=== PATIENT | male | born 1955 | race Caucasian/White ===

== ENCOUNTER 2019-12-20 15:41 | IRF | payer OTHER, SELFPAY ==
--- NOTE | ~2019-12-20 | XR_ITS ---
MODIFIED ESOPHAGRAM HISTORY: Dysphagia. TECHNIQUE: Modified barium esophagram was performed on 12/22/2019. I administered fluoroscopy and perf ormed the exam with speech pathologist. Patient was seated for lateral fluoroscopic imaging for kelvin stion of thin liquids, pudding, solids and quantified amounts, followed by thin liquids an uncontroll ed amounts. This was recorded on tape. A single fluoroscopic spot image was also recorded. The DAP fo r this procedure was 0.999 Gycm2. The amount of fluoroscopy time used during this procedure was 0.9 m inutes. FINDINGS: Oral stage: Adequate function. Pharyngeal stage: Laryngeal penetration and aspiration was present when drinking clear liquids throug h a straw. Cervical/esophageal stage: Adequate function. IMPRESSION: Laryngeal penetration and aspiration. Please correlate with speech pathologist findings and specific feeding recommendations. Reviewed, dictated and finalized at location A. 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
[2019-12-20 15:00] VITALS: BP 144/67; PULSE 82; RESP 20; TEMP 35.8; O2SAT 95; BMI 31.1
--- NOTE | 2019-12-20 15:36 | ADMGEN ---
This patient, Chacorta Bello, was admitted to PSYCHIATRIC Room 219-01. Patient/family oriented to hospital policies and general routines including ID bracelet, bed and alarms, visiting hours, pain management, procedures, bathroom and other care routines, personal items, smoking policy, room service/diet, and visiting hours. Valuables list has been completed. Information on how to activate the Rapid Response Team has been discussed. Patient/Family are encouraged to report perceived risks to care and to ask questions if they do not understand what they are told or what they should do.
[2019-12-20 16:00] VITALS: BMI 32.5
[2019-12-20 20:20] VITALS: BP 128/76; PULSE 74; RESP 18; TEMP 36.1; O2SAT 98
[2019-12-20] MEDS: FAMOTIDINE 20 MG TABLET PO (20:34)
[2019-12-20] MEDS: MELATONIN 3 MG TABLET PO (20:34)
[2019-12-20] MEDS: ATORVASTATIN 20 MG TABLET PO (20:34)
[2019-12-21] MEDS: ACETAMINOPHEN 325 MG TABLET PO (02:25)
[2019-12-21] MEDS: LORAZEPAM 0.5 MG TABLET PO (03:55)
[2019-12-21 04:52] LABS: Basophils Absolute Auto 0.1 K/mm3 (0.0-0.1); Basophils Percent Auto 0.8 % (0.2-1.2); Eosinophils Absolute Auto 0.3 K/mm3 (0-0.3); Hematocrit 45.2 % (42.0-52.0); Immature Granulocyte Absolute 0.06 K/mm3 (0.00-0.031); Immature Granulocyte Percent A 0.6 % (0-0.5); Lymphocytes Absolute Auto 1.59 K/mm3 (0.9-3.2); Lymphocytes Percent Auto 15.9 % (18.3-44.2); Mean Corpuscular HGB Conc 33.2 g/dl (32-36); Mean Corpuscular Hemoglobin 30.8 pg (26-34); Mean Corpuscular Volume 92.8 fl (80-100); Mean Platelet Volume 10.8 fl (7.4-10.4); Monocytes Absolute Auto 0.9 K/mm3 (0.1-0.6); Monocytes Percent Auto 9.1 % (2.6-8.5); Neutrophils Absolute Auto 7.1 K/mm3 (1.3-6.7); Neutrophils Percent Auto 70.6 % (45.5-73.1); Platelet Count Result 289 k/mm3 (150-375); Red Blood Count 4.87 M/mm3 (4.6-6.20)
[2019-12-21 05:20] LABS: Blood Urea Nitrogen 14 mg/dL (9-20); Calcium 8.8 mg/dL (8.4-10.2); Carbon Dioxide 23 mmol/L (22-30); Chloride 105 mmol/L (98-107); Estimated CRCL calculation 71 ml/min; Estimated Glomerular Filt Rate > 60; Glucose 113 mg/dL (75-110); Potassium 3.9 mmol/L (3.4-5.0); Sodium 139 mmol/L (137-145)
[2019-12-21 06:05] VITALS: BP 134/72; PULSE 71; RESP 18; TEMP 36.3; O2SAT 97
[2019-12-21] MEDS: HEPARIN SODIUM 5,000 UNITS/ML VIAL 5000 UNITS SUB-Q ×3 (07:34→21:39)
[2019-12-21] MEDS: hydrALAZINE HCL 50 MG TABLET PO ×3 (09:45→18:03)
[2019-12-21] MEDS: FAMOTIDINE 20 MG TABLET PO ×2 (09:45→20:12)
[2019-12-21] MEDS: FLUTICASONE PROPIONATE 0.05% NA SPR 16 GM BTL (*BKC) 2 SPRAY NASAL ×2 (09:45→18:02)
[2019-12-21] MEDS: AMLODIPINE BESYLATE 5 MG TABLET 10 MG PO (09:45)
[2019-12-21] MEDS: ASPIRIN 81 MG CHEWABLE TABLET PO (09:45)
[2019-12-21] MEDS: hydrOXYzine HCL 10 MG TABLET PO ×3 (09:46→18:02)
[2019-12-21] MEDS: LIDOCAINE 5% PATCH 2 PATCH TRANSDERM (09:46)
[2019-12-21] MEDS: OMEGA 3 POLYUNSAT FATTY ACIDS 1 GM CAP PO (09:47)
[2019-12-21] MEDS: lisinopriL 20 MG TABLET 40 MG PO (09:47)
--- NOTE | 2019-12-21 12:00 | WPDREHABHP ---
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 His last known well being was 1900 on December 06, 2019. CT of the head was negative for intracranial hemorrhage or acute and Alfaro process. He did not receive tPA. He was transferred to [facility] at 9:25 a.m. on December 08, 2019. NIH SS was 4 on arrival. CTA of the head and neck demonstrated focal stenosis or occlusion of the right CODING TECH, P3, however evaluation was limited due to venous contamination. He was not a candidate for med mechanical thrombectomy. On 2019 his MRI showed an acute infarction in the right posterior circulation, CODING TECH/ SCA territories, Neurology was consulted. He was started on aspirin and Lipitor. TTE on December 10, 2019 demonstrated an ejection fraction of 67% with no significant valvular abnormalities. On December 10, 2019 the patient became agitated with altered mental status and desaturated to 88%. Head CT showed increased edema in the posterior fossa and mild hydrocephalus. He was intubated and underwent extraventricular drain placement. He was started on mannitol. He developed acute kidney injury later that day and mannitol was stopped and he was given an IV bolus and was kept sedated to control intracranial pressure. Was extubated on December 13, 2019 and was noted to have prominent dysphagia and dysphonia. Repeat head CT and Speidel April 26, 2020 demonstrated improving stable edema in the posterior fossa with no hydrocephalus. He was weaned off drips and sedation, extraocular ventricular drain was discontinue P past swallowing study and Speidel May 26, 2020 and transferred out of ICU. He is on a cardiac dysphagia 2 diet with thin liquids. . Cardiology was consulted as the stroke was thought to be embolic in origin. Workup was negative for systemic thrombus/ emboli so he received loop recorder on December 18, 2019 for diagnosis of possible occult atrial fibrillation. He is hemodynamically stable. He has resume his home hypertensive medication. He is being treated with oral Septra DS for suspected urinary tract infection. Physical examination continues to reveal left-sided weakness decreased gross motor controlled balance impairment and decreased safety awareness. He will be discharged to rehab and subcutaneous heparin for DVT prophylaxis. Therapy was initiated at the acute care facility and the patient transferred to us from [facility] on December 20, 2019 FALLS OR SURGERIES: The patient has had no major surgeries in the 100 days prior to admission. They had no falls in the past year. They had no falls with injury in the past year. PAST MEDICAL HISTORY: hypertension prostate cancer PAST SURGICAL HISTORY: none SOCIAL HISTORY: patient lives with his and 1 level home with the basement and 2 steps to enter. His office is in the basement so he would like to be able to complete a flight of stairs. His works the 3 to 11 shift. 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
--- NOTE | 2019-12-21 12:35 | PCSTNOTE ---
Please refer to the Bedside Swallow Evaluation in the EMR.
[2019-12-21 12:44] LABS: Glucose Point of Care 161 (65-105)
[2019-12-21 14:00] VITALS: BP 124/58; PULSE 79; RESP 20; TEMP 36.5; O2SAT 97
[2019-12-21 14:45] VITALS: BMI 32.5
--- NOTE | 2019-12-21 15:17 | PCNSR ---
On 12/21/19, the student, Ekta Silva, provided care and completed [facility] documentation on this patient. I have reviewed the student's documentation and agree with the findings.
--- NOTE | 2019-12-21 16:43 | RPD ---
INDIVIDUALIZED PLAN OF CARE FOR Chacorta Bello Brief Synthesis of Pre-Admission Screen, Post-Admission Evaluation and Therapy Evaluations: The patient presents to rehab with an acute infarction of the right DRY KILN BURNER/SCA territories. Comorbidities include new onset atrial fibrillation, hypertension, hyperlipidemia, loop recorder placement, posterior fossa edema and mild HCP status post extraventricular drain placement and subsequent removal, dysphagia, dysphonia, carotid artery stenosis, and atherosclerosis. Deficits include:ADLs, Balance, Cognition, Endurance, Family Training/Education, Mobility, Pain Management, ROM, Safety, Speech, Strength, Swallowing, and Transfers. Engineering Analyst/Case Management for: Discharge Planning and Patient/Family Counseling Physical Therapy: 5 days per week for 30 minutes. Treatments may include: Therapeutic Exercise, Gait Training, Neuromuscular Re-education, Transfer Training, Community Reintegration, Bed Mobility, Patient/Family Education, Wheelchair Mobility Group Therapy/Concurrent Therapy Rationales: -Improve attention span during functional activities in a distracted environment. -Enhance problem solving and/or adequate judgment skills during functional activities in a distracted environment. -Promote increased safety awareness in a distracted environment to reduce fall risk with functional tasks, transfers, and ambulation to allow a more safe, self-sufficient return to the home environment. -Improve dynamic balance skills to promote safety and independence with functional activities in a distracted environment for maximum gain. Occupational Therapy: 5 days per week for 75 minutes. Treatments may include: Therapeutic Exercise, Therapeutic Activity, Cognitive Training, Self-Care Transfer Training, Community Reintegration, Home Management, Patient/Family Education, Wheelchair Mobility Training, Energy Conservation Training Group Therapy/Concurrent Therapy Rationales: -Allow therapist to observe and teach generalization and carry-over of skills learned in individual therapy. -Enhance problem solving and sequencing skills during therapeutic activities in a distracted environment. -Promote increased safety awareness in a realistic setting to reduce fall risk with functional tasks due to visual and verbal distractions. -Increase functional level with ADLs, ADL transfers and use of adaptive equipment through therapeutic activities with others while promoting safety to allow a more safe, self-sufficient return home. Speech Therapy: 5 days per week for 75 minutes. Treatments may include: Dysphasia Therapy, Speech/Language/Communication Therapy, Cognitive Training, Patient/Family Education Group Therapy/Concurrent Therapy - Rationale: -Allow therapist to observe and teach generalization and carry-over of skills learned in individual therapy. -Improve comprehension skills with complex or abstract ideas through discussion in a realistic setting. -Enhance problem solving skills with complex issues during activities in a distracted environment. -Promote increased memory skills and concentration in a distracted environment for a safe transition home. -Improve attention and focus with language/communication skills in a realistic and supportive therapeutic setting. -Allow for practice of expression of basic needs and ideas through functional activities with others. Medical Prognosis: Good Anticipated Length of Stay: 14 days Rehab Goals: Eating Goal: 06-Independent Oral Hygiene Goal: 06-Independent Toileting Hygiene Goal: 06-Independent Shower/Bathe Self Goal: 06-Independent Upper Body Dressing Goal: 06-Independent Lower Body Dressing Goal: 06-Independent Putting On/Taking Off Footwear Goal: 06-Independent Rolling Left and Right Goal: 06-Independent Sit to Lying Goal: 06-Independent Lying to Sitting on Side of Bed Goal: 06-Independent Sit to Stand Goal: 06-Independent Chair/[id number] Transfer Goal: 06-Independent Toilet Transfe
[2019-12-21] MEDS: ATORVASTATIN 20 MG TABLET PO (20:12)
[2019-12-21] MEDS: ACETAMINOPHEN 325 MG TABLET 650 MG PO (20:13)
[2019-12-21] MEDS: MELATONIN 3 MG TABLET PO (20:13)
[2019-12-21 22:00] VITALS: BP 138/55; PULSE 86; RESP 18; TEMP 36.9; O2SAT 97
[2019-12-22 06:00] VITALS: BP 124/62; PULSE 79; RESP 20; TEMP 36.6; O2SAT 98
[2019-12-22] MEDS: HEPARIN SODIUM 5,000 UNITS/ML VIAL 5000 UNITS SUB-Q ×3 (06:10→21:09)
[2019-12-22 09:35] VITALS: BP 120/71; PULSE 98
[2019-12-22] MEDS: hydrOXYzine HCL 10 MG TABLET PO ×3 (10:29→17:47)
[2019-12-22] MEDS: OMEGA 3 POLYUNSAT FATTY ACIDS 1 GM CAP PO (10:29)
[2019-12-22] MEDS: FAMOTIDINE 20 MG TABLET PO ×2 (10:29→21:09)
[2019-12-22] MEDS: lisinopriL 20 MG TABLET 40 MG PO (10:30)
[2019-12-22] MEDS: ASPIRIN 81 MG CHEWABLE TABLET PO (10:30)
[2019-12-22] MEDS: AMLODIPINE BESYLATE 5 MG TABLET 10 MG PO (10:30)
[2019-12-22] MEDS: hydrALAZINE HCL 50 MG TABLET PO ×3 (10:30→17:47)
[2019-12-22] MEDS: FLUTICASONE PROPIONATE 0.05% NA SPR 16 GM BTL (*BKC) 2 SPRAY NASAL ×2 (10:31→17:47)
[2019-12-22] MEDS: LIDOCAINE 5% PATCH 2 PATCH TRANSDERM (10:31)
--- NOTE | 2019-12-22 11:15 | WPDNEURORHBP ---
Subjective Date/time seen: December 22, 2019 at 11:15 a.m. Interval history: patient is here because of intracranial hemorrhage in the right frontal region and doing fairly well does not have any specific complaints particularly no headaches no nausea vomiting chest pain shortness of breath no double vision no tingling numbness fever chills or sore throat his is at the bedside and concurs that the patient does not really have any new neurological complaints Review of Systems Constitutional: Constitutional: Reports no additional constitutional complaints Eyes: Eyes: Reports no additional eye complaints ENT: Reports system reviewed and no additional complaints, except as documented Cardiovascular: Cardiovascular: Reports no additional cardiovascular complaints Respiratory: Respiratory: Reports no additional respiratory complaints Gastrointestinal: Gastrointestinal: Reports no additional gastrointestinal complaints Genitourinary: Genitourinary: Reports no additional male genitourinary complaints Musculoskeletal: Musculoskeletal: Reports no additional musculoskeletal complaints Integumentary/Breasts: Skin/Breast: Reports system reviewed and no additional complaints, except as docu Neurologic: Reports system reviewed and no additional complaints, except as documented Psychiatric: Psychiatric: Reports no additional psychiatric complaints Functional Status Ambulation Ability Ability to Ambulate 10 Feet: Minimum Assistance X 1 Ability to Ambulate 50 Feet With 2 Turns: Minimum Assistance X 1 Ability to Ambulate 150 Feet: Minimum Assistance X 1 Ambulation Assistive Devices: Walker, Wheeled Transfers Ability Ability to Transfer In/Out of Chair: Standby Assistance Exam Const: General: comfortable and no acute distress HENMT: General nose exam: Normal nares present Mouth: Yes moist mucous membranes Eyes: General: appearance normal, both eyes and all related structures Neck: Neck: supple and no JVD Resp: Effort & Inspection: normal respiratory effort Auscultation: clear to auscultation bilaterally Cardio: Rate: regular rate Rhythm: regular rhythm GI: GI Palp: Yes Soft to palpation Auscultation: normal bowel sounds : Male General Exam: Yes normal external exam Skin: General skin exam: normal color and no rashes or lesions noted Neuro: Other: patient is awake and alert well oriented in time place and person with some speech hesitation otherwise fairly decent mental status examination likewise cranial examination is also unremarkable he does have generalized weakness particularly affecting the left more so than the right side however is significantly improving and working with therapy and quite happy with the care he is receiving Extrem: General: normal to inspection Objective Data Vital Signs Vital Signs: Vital Signs - 24 hr 12/22/19 14:00 12/22/19 22:00 12/23/19 06:00 Temperature 36.1 C L 36.9 C 36.7 C Pulse Rate 80 86 75 Respiratory Rate 20 18 18 Blood Pressure 119/63 142/73 H 120/50 L Pulse Oximetry 95 97 97 Intake/Output Intake/Output: Intake & Output 12/20/19 12/21/19 12/22/19 12/23/19 23:59 23:59 23:59 23:59 Intake Total 240 720 600 240 Balance 240 720 600 240 Meds/Results Medications: Active Medications Generic Name Dose Route Start Last Admin Trade Name Freq PRN Reason Stop Dose Admin Acetaminophen 650 mg 12/21/19 02:57 12/21/19 20:13 Tylenol Tablet PO 650 mg Q4H PRN Administration Pain Rated 1-3 Amlodipine Besylate 10 mg 12/21/19 09:00 12/23/19 09:36 Norvasc PO 10 mg DAILY ELIZABETH Administration Aspirin 81 mg 12/21/19 09:00 12/23/19 09:37 Aspirin Chewable PO 81 mg DAILY ELIZABETH Administration Atorvastatin Calcium 20 mg 12/20/19 21:00 12/22/19 21:09 Lipitor PO 20 mg HS ELIZABETH Administration Famotidine 20 mg 12/20/19 21:00 12/23/19 09:37 Pepcid PO 20 mg Q12HR ELIZABETH Administration Fish Oil 1 gm 12/21/19 09:00 12/23/19
[2019-12-22 14:00] VITALS: BP 119/63; PULSE 80; RESP 20; TEMP 36.1; O2SAT 95
--- NOTE | 2019-12-22 14:59 | PCSTNOTE ---
Modified Barium Swallow This pt was seen for a Modified Barium Swallow following a Bedside Swallow Evaluation which indicated signs and symptoms of aspiration. He was given trials of thin and extremely thick liquid and mixed solid/liquid. During the pharyngeal stage of the swallow, reduced laryngeal elevation was evidenced by laryngeal penetration, which entered the airway to the level of the vocal folds and was ejected. This occurred with trials of thin liquid via straw, likely due to a large bolus. All other trials were within functional limits. It is recommended for the pt to receive an oral diet of regular consistency foods and thin liquids. Position during intake should be upright. The pt should eat independently. The following precautions are recommended: NO STRAWS Treatment should focus on improved laryngeal elevation.
--- NOTE | 2019-12-22 15:09 | PCSTNOTE ---
Modified Barium Swallow This pt was seen for a modified barium swallow. She was unable to answer questions and was not cooperative with the test due to her dementia. She was given trials of thin, mildly thick, moderately thick, and extremely thick liquid. She refused further trials. During the pharyngeal stage of the swallow, reduced laryngeal elevation was evidenced by penetration of thin and mildly thick liquid which entered the airway below the level of the vocal folds and was ejected. With trials of moderately thick liquid, material entered the airway above the level of the vocal folds and was ejected during the swallow. Trials of extremely thick liquid were within functional limits. It is recommended for the pt to receive an oral diet of minced and moist food with moderately thick liquid. She should have one-on-one supervision during meals. The following precautions are recommended: -small bites/sips -alternate liquids and solids Treatment should focus on the following: -laryngeal elevation exercises
[2019-12-22] MEDS: MELATONIN 3 MG TABLET PO (21:08)
[2019-12-22] MEDS: ATORVASTATIN 20 MG TABLET PO (21:09)
[2019-12-22 22:00] VITALS: BP 142/73; PULSE 86; RESP 18; TEMP 36.9; O2SAT 97
[2019-12-23] MEDS: LORAZEPAM 0.5 MG TABLET PO (02:36)
[2019-12-23] MEDS: HEPARIN SODIUM 5,000 UNITS/ML VIAL 5000 UNITS SUB-Q ×3 (05:55→21:04)
[2019-12-23 06:00] VITALS: BP 120/50; PULSE 75; RESP 18; TEMP 36.7; O2SAT 97
[2019-12-23] MEDS: FLUTICASONE PROPIONATE 0.05% NA SPR 16 GM BTL (*BKC) 2 SPRAY NASAL ×2 (09:36→17:59)
[2019-12-23] MEDS: LIDOCAINE 5% PATCH 2 PATCH TRANSDERM (09:36)
[2019-12-23] MEDS: AMLODIPINE BESYLATE 5 MG TABLET 10 MG PO (09:36)
[2019-12-23] MEDS: ASPIRIN 81 MG CHEWABLE TABLET PO (09:37)
[2019-12-23] MEDS: FAMOTIDINE 20 MG TABLET PO ×2 (09:37→21:06)
[2019-12-23] MEDS: hydrOXYzine HCL 10 MG TABLET PO ×3 (09:37→17:59)
[2019-12-23] MEDS: lisinopriL 20 MG TABLET 40 MG PO (09:37)
[2019-12-23] MEDS: hydrALAZINE HCL 50 MG TABLET PO ×3 (09:37→17:59)
[2019-12-23] MEDS: OMEGA 3 POLYUNSAT FATTY ACIDS 1 GM CAP PO (09:37)
[2019-12-23 14:00] VITALS: BP 130/58; PULSE 76; RESP 20; TEMP 36.6; O2SAT 100
--- NOTE | 2019-12-23 14:07 | WPDNEURORHBP ---
Subjective Date/time seen: 12/23/19 14:07 Interval history: this 64-year-old gentleman is here because of having at stroke in the posterior circulation patient had a complicated course developing hydrocephalus related to posterior fossa stroke and 1 time he was intubated and treated for intracranial hypertension however recuperated quite well and denies any headache chest pain shortness of breath fever chills or sore throat he does have mild blurriness of the vision which comes and goes which is most likely related to cerebellar dysfunction and posterior fossa stroke his weakness in the cerebellar function testing or getting normal the left-sided cerebellar sign and the right-sided cerebellar signs are also improving Review of Systems Constitutional: Constitutional: Reports no additional constitutional complaints Eyes: Eyes: Reports no additional eye complaints ENT: Reports system reviewed and no additional complaints, except as documented Cardiovascular: Cardiovascular: Reports no additional cardiovascular complaints Respiratory: Respiratory: Reports no additional respiratory complaints Gastrointestinal: Gastrointestinal: Reports no additional gastrointestinal complaints Genitourinary: Genitourinary: Reports no additional male genitourinary complaints Musculoskeletal: Musculoskeletal: Reports no additional musculoskeletal complaints Integumentary/Breasts: Skin/Breast: Reports system reviewed and no additional complaints, except as docu Neurologic: Reports system reviewed and no additional complaints, except as documented Psychiatric: Psychiatric: Reports no additional psychiatric complaints Functional Status Ambulation Ability Ability to Ambulate 10 Feet: Minimum Assistance X 1 Ability to Ambulate 50 Feet With 2 Turns: Minimum Assistance X 1 Ability to Ambulate 150 Feet: Minimum Assistance X 1 Ambulation Assistive Devices: Walker, Wheeled Transfers Ability Ability to Transfer In/Out of Chair: Standby Assistance Exam Const: General: comfortable and no acute distress HENMT: General nose exam: Normal nares present Mouth: Yes moist mucous membranes Eyes: General: appearance normal, both eyes and all related structures Neck: Neck: supple and no JVD Resp: Effort & Inspection: normal respiratory effort Auscultation: clear to auscultation bilaterally Cardio: Rate: regular rate Rhythm: regular rhythm GI: GI Palp: Yes Soft to palpation Auscultation: normal bowel sounds Skin: General skin exam: normal color and no rashes or lesions noted Neuro: Other: patient is awake and alert well oriented time place and person subjectively has some blurriness of the vision however able to function quite well is speech and language functions are quite normal the left more so than the right S cerebellar signs are improving overall picture is of improvement Extrem: General: normal to inspection Objective Data Vital Signs Vital Signs: Vital Signs - 24 hr 12/22/19 22:00 12/23/19 06:00 Temperature 36.9 C 36.7 C Pulse Rate 86 75 Respiratory Rate 18 18 Blood Pressure 142/73 H 120/50 L Pulse Oximetry 97 97 Intake/Output Intake/Output: Intake & Output 12/20/19 12/21/19 12/22/19 12/23/19 23:59 23:59 23:59 23:59 Intake Total 240 720 600 240 Balance 240 720 600 240 Meds/Results Medications: Active Medications Generic Name Dose Route Start Last Admin Trade Name Freq PRN Reason Stop Dose Admin Acetaminophen 650 mg 12/21/19 02:57 12/21/19 20:13 Tylenol Tablet PO 650 mg Q4H PRN Administration Pain Rated 1-3 Amlodipine Besylate 10 mg 12/21/19 09:00 12/23/19 09:36 Norvasc PO 10 mg DAILY ELIZABETH Administration Aspirin 81 mg 12/21/19 09:00 12/23/19 09:37 Aspirin Chewable PO 81 mg DAILY ELIZABETH Administration Atorvastatin Calcium 20 mg 12/20/19 21:00 12/22/19 21:09 Lipitor PO 20 mg HS ELIZABETH Administration Famotidine 20 mg 12/20/19 21:00 12/23/19 09:37 Pepcid PO 20 mg
[2019-12-23] MEDS: ATORVASTATIN 20 MG TABLET PO (21:06)
[2019-12-23] MEDS: MELATONIN 3 MG TABLET PO (21:06)
[2019-12-23 21:13] VITALS: BP 118/62; PULSE 81; RESP 16; TEMP 36.9; O2SAT 95
[2019-12-24 05:21] VITALS: BP 121/67; PULSE 65; RESP 20; TEMP 36.4; O2SAT 96
[2019-12-24] MEDS: HEPARIN SODIUM 5,000 UNITS/ML VIAL 5000 UNITS SUB-Q ×3 (05:55→21:49)
[2019-12-24 08:30] VITALS: BP 129/66; PULSE 64; O2SAT 95
[2019-12-24] MEDS: AMLODIPINE BESYLATE 5 MG TABLET 10 MG PO (10:08)
[2019-12-24] MEDS: FAMOTIDINE 20 MG TABLET PO ×2 (10:08→21:49)
[2019-12-24] MEDS: ASPIRIN 81 MG CHEWABLE TABLET PO (10:08)
[2019-12-24] MEDS: hydrOXYzine HCL 10 MG TABLET PO (10:09)
[2019-12-24] MEDS: hydrALAZINE HCL 50 MG TABLET PO ×3 (10:09→17:52)
[2019-12-24] MEDS: FLUTICASONE PROPIONATE 0.05% NA SPR 16 GM BTL (*BKC) 2 SPRAY NASAL (10:09)
[2019-12-24] MEDS: OMEGA 3 POLYUNSAT FATTY ACIDS 1 GM CAP PO (10:11)
[2019-12-24] MEDS: lisinopriL 20 MG TABLET 40 MG PO (10:11)
[2019-12-24 14:00] VITALS: BP 122/72; PULSE 72; RESP 18; TEMP 36.5; O2SAT 95
[2019-12-24] MEDS: ATORVASTATIN 20 MG TABLET PO (21:49)
[2019-12-24] MEDS: MELATONIN 3 MG TABLET PO (21:49)
[2019-12-24 21:57] VITALS: BP 149/64; PULSE 77; RESP 20; TEMP 36.1; O2SAT 96
[2019-12-25] MEDS: LORAZEPAM 0.5 MG TABLET PO ×2 (01:02→22:11)
[2019-12-25 06:00] VITALS: BP 125/82; PULSE 80; RESP 20; TEMP 36.2; O2SAT 96
[2019-12-25] MEDS: HEPARIN SODIUM 5,000 UNITS/ML VIAL 5000 UNITS SUB-Q (07:39)
[2019-12-25 08:13] VITALS: BP 120/62; PULSE 79
[2019-12-25] MEDS: ASPIRIN 81 MG CHEWABLE TABLET PO (10:39)
[2019-12-25] MEDS: FAMOTIDINE 20 MG TABLET PO ×2 (10:39→21:02)
[2019-12-25] MEDS: OMEGA 3 POLYUNSAT FATTY ACIDS 1 GM CAP PO (10:41)
[2019-12-25] MEDS: hydrALAZINE HCL 50 MG TABLET PO ×3 (10:41→17:35)
[2019-12-25] MEDS: lisinopriL 20 MG TABLET 40 MG PO (10:41)
[2019-12-25] MEDS: AMLODIPINE BESYLATE 5 MG TABLET 10 MG PO (10:42)
[2019-12-25] MEDS: FLUTICASONE PROPIONATE 0.05% NA SPR 16 GM BTL (*BKC) 2 SPRAY NASAL ×2 (10:43→17:35)
--- NOTE | 2019-12-25 13:59 | WPDNEURORHBP ---
Subjective Date/time seen: 12/25/19 13:59 Interval history: the therapist have noted left-sided visual field difficulty which is most likely related to the stroke he suffered from along with the cerebellar deficit he does have however denies any headache nausea vomiting chest pain or shortness of breath he is here to recuperate from the posterior fossa hemorrhage The patient remains awake and alert and follows all commands quite well and present in the team conference along with the and the sister Review of Systems Constitutional: Constitutional: Reports no additional constitutional complaints Eyes: Eyes: Reports no additional eye complaints ENT: Reports system reviewed and no additional complaints, except as documented Cardiovascular: Cardiovascular: Reports no additional cardiovascular complaints Respiratory: Respiratory: Reports no additional respiratory complaints Gastrointestinal: Gastrointestinal: Reports no additional gastrointestinal complaints Genitourinary: Genitourinary: Reports no additional male genitourinary complaints Musculoskeletal: Musculoskeletal: Reports no additional musculoskeletal complaints Integumentary/Breasts: Skin/Breast: Reports system reviewed and no additional complaints, except as docu Neurologic: Reports system reviewed and no additional complaints, except as documented Psychiatric: Psychiatric: Reports no additional psychiatric complaints Functional Status Ambulation Ability Ability to Ambulate 10 Feet: Standby Assistance Ability to Ambulate 50 Feet With 2 Turns: Standby Assistance Ability to Ambulate 150 Feet: Standby Assistance Ambulation Assistive Devices: Walker, Wheeled Transfers Ability Ability to Transfer In/Out of Chair: Standby Assistance Exam Const: General: comfortable and no acute distress HENMT: General nose exam: Normal nares present Mouth: Yes moist mucous membranes Eyes: General: appearance normal, both eyes and all related structures Neck: Neck: supple and no JVD Resp: Effort & Inspection: normal respiratory effort Auscultation: clear to auscultation bilaterally Cardio: Rate: regular rate Rhythm: regular rhythm GI: GI Palp: Yes Soft to palpation Auscultation: normal bowel sounds Skin: General skin exam: normal color and no rashes or lesions noted Neuro: Other: patient is awake and alert well oriented time place and person does have a left-sided visual field defect and also cerebellar signs but walking fairly good about 250 feet of course with assistance overall there is general improvement in his neurological status Extrem: General: normal to inspection Objective Data Vital Signs Vital Signs: Vital Signs - 24 hr 12/24/19 14:00 12/24/19 21:57 12/25/19 06:00 Temperature 36.5 C 36.1 C L 36.2 C L Pulse Rate 72 77 80 Respiratory Rate 18 20 20 Blood Pressure 122/72 149/64 H 125/82 Pulse Oximetry 95 96 96 12/25/19 08:13 Temperature Pulse Rate 79 Respiratory Rate Blood Pressure 120/62 Pulse Oximetry Intake/Output Intake/Output: Intake & Output 12/22/19 12/23/19 12/24/19 12/25/19 23:59 23:59 23:59 23:59 Intake Total 600 720 720 360 Balance 600 720 720 360 Meds/Results Medications: Active Medications Generic Name Dose Route Start Last Admin Trade Name Freq PRN Reason Stop Dose Admin Acetaminophen 650 mg 12/21/19 02:57 12/21/19 20:13 Tylenol Tablet PO 650 mg Q4H PRN Administration Pain Rated 1-3 Amlodipine Besylate 10 mg 12/21/19 09:00 12/25/19 10:42 Norvasc PO 10 mg DAILY ELIZABETH Administration Aspirin 81 mg 12/21/19 09:00 12/25/19 10:39 Aspirin Chewable PO 81 mg DAILY ELIZABETH Administration Atorvastatin Calcium 20 mg 12/20/19 21:00 12/24/19 21:49 Lipitor PO 20 mg HS ELIZABETH Administration Famotidine 20 mg 12/20/19 21:00 12/25/19 10:39 Pepcid PO 20 mg Q12HR ELIZABETH Administration Fish Oil 1 gm 12/21/19 09:00 12/25/19 10:41 Lovaza PO 1 gm DAILY ELIZABETH Adm
[2019-12-25 14:00] VITALS: BP 119/65; PULSE 74; RESP 18; TEMP 36.6; O2SAT 96
[2019-12-25] MEDS: ATORVASTATIN 20 MG TABLET PO (21:02)
[2019-12-25] MEDS: MELATONIN 3 MG TABLET PO (21:05)
[2019-12-25 21:47] VITALS: BP 102/49; PULSE 69; RESP 18; TEMP 36.6; O2SAT 95
[2019-12-26 06:00] VITALS: BP 128/70; PULSE 72; RESP 18; TEMP 36.2; O2SAT 96
--- NOTE | 2019-12-26 07:47 | PCPTNOTE ---
Chacorta Bello was evaluated for a [wheeled walker] on 12/26/2019 by this physical therapist. The wheeled walker[] will resolve patient's mobility limitations and will be used for ADL's within the home. The patient can safely use the [wheeled walker for functional mobility tasks and ADL's]. ?The []wheeled walker will resolve the patient?s mobility deficits, including [standing balance deficit and visual deficits and will also allow for safety and prevention of falls within home.
[2019-12-26] MEDS: AMLODIPINE BESYLATE 5 MG TABLET 10 MG PO (08:45)
[2019-12-26] MEDS: ASPIRIN 81 MG CHEWABLE TABLET PO (08:45)
[2019-12-26] MEDS: FLUTICASONE PROPIONATE 0.05% NA SPR 16 GM BTL (*BKC) 2 SPRAY NASAL ×2 (08:46→17:44)
[2019-12-26] MEDS: hydrALAZINE HCL 50 MG TABLET PO ×3 (08:46→17:44)
[2019-12-26] MEDS: lisinopriL 20 MG TABLET 40 MG PO (08:46)
[2019-12-26] MEDS: OMEGA 3 POLYUNSAT FATTY ACIDS 1 GM CAP PO (08:46)
[2019-12-26] MEDS: FAMOTIDINE 20 MG TABLET PO ×2 (08:46→20:18)
--- NOTE | 2019-12-26 12:28 | PCDIET ---
Nutrition Follow-Up Complete: Excessive sodium intake related to HTN as evidenced by pt's dietary recall. Pt will consume greater than 75% of all meals. Goal met. Pt is consuming 100% of meals since switched to Level 7. Nutrition recommendation: Recommend continuation of Regular diet for now. I did discuss with pt during stroke MNT education that he would benefit from a heart healthy diet nursing home. Last recorded weight is 109 kg. Bowel Motility: +BM 12/23 Labs Reviewed: Labs have not been recorded since 12/21. BP on 12/25 at 125/82 Meds Noted:lipitor, prinivil, pepcid, lovaza Additional Notes: Pt states appetite is good. No complaints of N/V nor abdominal pain. Noted diet advancement from Level 5 to Level 7. Will monitor labs and intake. Will follow up in 5 days.
--- NOTE | 2019-12-26 13:18 | PCNSR ---
On 12/26/19, the student, Ekta Silva, provided care and completed [facility] documentation on this patient. I have reviewed the student's documentation and agree with the findings.
--- NOTE | 2019-12-26 13:38 | WPDNEURORHBP ---
Subjective Date/time seen: 12/26/19 13:38 Interval history: earlier this morning patient complaining of some blurring of vision which fluctuates and at the time of the examination he was pretty good is engage in therapy and doing fairly well without any headache nausea vomiting chest pain shortness of breath his strength is improving and engage in therapy quite well Review of Systems Review of Systems: All systems reviewed & are unremarkable except as noted in HPI and below Functional Status Ambulation Ability Ability to Ambulate 10 Feet: Standby Assistance Ability to Ambulate 50 Feet With 2 Turns: Standby Assistance Ability to Ambulate 150 Feet: Standby Assistance Ambulation Assistive Devices: Walker, Wheeled Transfers Ability Ability to Transfer In/Out of Chair: Standby Assistance Exam Const: General: comfortable and no acute distress HENMT: General nose exam: Normal nares present Mouth: Yes moist mucous membranes Eyes: General: appearance normal, both eyes and all related structures Neck: Neck: supple and no JVD Resp: Effort & Inspection: normal respiratory effort Auscultation: clear to auscultation bilaterally Cardio: Rate: regular rate Rhythm: regular rhythm GI: GI Palp: Yes Soft to palpation Auscultation: normal bowel sounds Skin: General skin exam: normal color and no rashes or lesions noted Neuro: Other: patient is awake and alert well oriented time place and person the speech language functions her fairly decent strength has improved is walking quite good and making significant improvement Extrem: General: normal to inspection Objective Data Vital Signs Vital Signs: Vital Signs - 24 hr 12/25/19 14:00 12/25/19 21:47 12/26/19 06:00 Temperature 36.6 C 36.6 C 36.2 C L Pulse Rate 74 69 72 Respiratory Rate 18 18 18 Blood Pressure 119/65 102/49 L 128/70 Pulse Oximetry 96 95 96 Intake/Output Intake/Output: Intake & Output 12/23/19 12/24/19 12/25/19 12/26/19 23:59 23:59 23:59 23:59 Intake Total 720 720 600 240 Balance 720 720 600 240 Meds/Results Medications: Active Medications Generic Name Dose Route Start Last Admin Trade Name Freq PRN Reason Stop Dose Admin Acetaminophen 650 mg 12/21/19 02:57 12/21/19 20:13 Tylenol Tablet PO 650 mg Q4H PRN Administration Pain Rated 1-3 Amlodipine Besylate 10 mg 12/21/19 09:00 12/26/19 08:45 Norvasc PO 10 mg DAILY [facility] Administration Aspirin 81 mg 12/21/19 09:00 12/26/19 08:45 Aspirin Chewable PO 81 mg DAILY [facility] Administration Atorvastatin Calcium 20 mg 12/20/19 21:00 12/25/19 21:02 Lipitor PO 20 mg HS [facility] Administration Famotidine 20 mg 12/20/19 21:00 12/26/19 08:46 Pepcid PO 20 mg Q12HR [facility] Administration Fish Oil 1 gm 12/21/19 09:00 12/26/19 08:46 Lovaza PO 1 gm DAILY [facility] Administration Fluticasone Propionate 2 spray 12/20/19 17:00 12/26/19 08:46 Flonase 0.05% Nasal [place] NASAL 2 spray BID [facility] Administration Hydralazine HCl 50 mg 12/20/19 17:00 12/26/19 08:46 Apresoline Tablet PO 50 mg TID [facility] Administration Lisinopril 40 mg 12/21/19 09:00 12/26/19 08:46 Prinivil PO 40 mg DAILY [facility] Administration Lorazepam 0.5 mg 12/21/19 03:40 12/25/19 22:11 Ativan Tab PO 0.5 mg Q6H PRN Administration Anxiety Melatonin 5 mg 12/26/19 21:00 Melatonin PO HS [facility] Radiology Results: ITS Impressions Modified Barium Swallow 12/22/19 11:55 IMPRESSION: Laryngeal penetration and aspiration. Please correlate with speech pathologist findings and specific feeding recommendations. Progress Note: A&P Assessment and Plan (1) Hypertension: Code(s): I10 - Essential (primary) hypertension Status: Acute (2) Posterior circulation stroke: Code(s): I63.50 - Cerebral infarction due to unspecified occlusion or stenosis of unspecified cerebral artery Status: Acute Additional Plan patient wa
[2019-12-26 14:00] VITALS: BP 118/75; PULSE 72; RESP 20; TEMP 36.6; O2SAT 100
[2019-12-26] MEDS: MELATONIN 5 MG TABLET PO (20:19)
[2019-12-26] MEDS: ATORVASTATIN 20 MG TABLET PO (20:19)
[2019-12-26 21:40] VITALS: BP 116/64; PULSE 84; RESP 16; TEMP 36.8; O2SAT 96
[2019-12-26 21:45] VITALS: BP 111/60; PULSE 66; RESP 20; TEMP 36.3; O2SAT 97
[2019-12-26] MEDS: LORAZEPAM 0.5 MG TABLET PO (23:29)
[2019-12-27 06:00] VITALS: BP 137/68; PULSE 81; RESP 20; TEMP 36.2; O2SAT 98
[2019-12-27] MEDS: OMEGA 3 POLYUNSAT FATTY ACIDS 1 GM CAP PO (09:48)
[2019-12-27] MEDS: FAMOTIDINE 20 MG TABLET PO ×2 (09:48→20:41)
[2019-12-27] MEDS: lisinopriL 20 MG TABLET 40 MG PO (09:48)
[2019-12-27] MEDS: ASPIRIN 81 MG CHEWABLE TABLET PO (09:48)
[2019-12-27] MEDS: AMLODIPINE BESYLATE 5 MG TABLET 10 MG PO (09:48)
[2019-12-27] MEDS: hydrALAZINE HCL 50 MG TABLET PO ×2 (09:49→15:24)
[2019-12-27] MEDS: FLUTICASONE PROPIONATE 0.05% NA SPR 16 GM BTL (*BKC) 2 SPRAY NASAL ×2 (09:49→17:44)
--- NOTE | 2019-12-27 10:35 | WPDNEURORHBP ---
Subjective Date/time seen: 12/27/19 10:35 Interval history: This 64-year-old is here after having had rather of course with the posterior circulation stroke and doing fairly well in rehab he has some sutures on his skull which are due for it to removed and have instructed the nurse to remove it the patient is blurriness of the vision is improving overall weakness is improving which is bilateral with the cerebellar sinus the picture is significant improvement in the past several days in his neurological status He denies headache headache nausea vomiting chest pain shortness of breath diarrhea vomiting fever chills sore throat Review of Systems Review of Systems: All systems reviewed & are unremarkable except as noted in HPI and below Functional Status Ambulation Ability Ability to Ambulate 10 Feet: Standby Assistance Ability to Ambulate 50 Feet With 2 Turns: Standby Assistance Ability to Ambulate 150 Feet: Standby Assistance Ambulation Assistive Devices: Walker, Wheeled Transfers Ability Ability to Transfer In/Out of Chair: Standby Assistance Exam Const: General: comfortable and no acute distress HENMT: Other: the incision from the extraventricular drain is clean and healthy and suture can be removed Eyes: General: appearance normal, both eyes and all related structures Neck: Neck: supple and no JVD Resp: Effort & Inspection: normal respiratory effort Auscultation: clear to auscultation bilaterally Cardio: Rate: regular rate Rhythm: regular rhythm GI: GI Palp: Yes Soft to palpation Auscultation: normal bowel sounds Skin: General skin exam: normal color and no rashes or lesions noted Neuro: Other: patient is awake and alert will oriented in time place and person with little hesitation in speech and clearly improved his bilateral hemiparesis and cerebellar signs have improved and he is walking with the assistance quite a bit at distance Extrem: General: normal to inspection Objective Data Vital Signs Vital Signs: Vital Signs - 24 hr 12/26/19 14:00 12/26/19 21:40 12/26/19 21:45 Temperature 36.6 C 36.8 C 36.3 C L Pulse Rate 72 84 66 Respiratory Rate 20 16 20 Blood Pressure 118/75 116/64 111/60 Pulse Oximetry 100 96 97 12/27/19 06:00 Temperature 36.2 C L Pulse Rate 81 Respiratory Rate 20 Blood Pressure 137/68 Pulse Oximetry 98 Intake/Output Intake/Output: Intake & Output 12/24/19 12/25/19 12/26/1920 23:59 23:59 23:59 23:59 Intake Total 720 600 720 360 Balance 720 600 720 360 Meds/Results Medications: Active Medications Generic Name Dose Route Start Last Admin Trade Name Freq PRN Reason Stop Dose Admin Acetaminophen 650 mg 12/21/19 02:57 12/21/19 20:13 Tylenol Tablet PO 650 mg Q4H PRN Administration Pain Rated 1-3 Amlodipine Besylate 10 mg 12/21/19 09:00 12/27/19 09:48 Norvasc PO 10 mg DAILY [facility] Administration Aspirin 81 mg 12/21/19 09:00 12/27/19 09:48 Aspirin Chewable PO 81 mg DAILY [facility] Administration Atorvastatin Calcium 20 mg 12/20/19 21:00 12/26/19 20:19 Lipitor PO 20 mg HS [facility] Administration Famotidine 20 mg 12/20/19 21:00 12/27/19 09:48 Pepcid PO 20 mg Q12HR [facility] Administration Fish Oil 1 gm 12/21/19 09:00 12/27/19 09:48 Lovaza PO 1 gm DAILY [facility] Administration Fluticasone Propionate 2 spray 12/20/19 17:00 12/27/19 09:49 Flonase 0.05% Nasal [place] NASAL 2 spray BID [facility] Administration Hydralazine HCl 50 mg 12/20/19 17:00 12/27/19 09:49 Apresoline Tablet PO 50 mg TID [facility] Administration Lisinopril 40 mg 12/21/19 09:00 12/27/19 09:48 Prinivil PO 40 mg DAILY [facility] Administration Lorazepam 0.5 mg 12/21/19 03:40 12/26/19 23:29 Ativan Tab PO 0.5 mg Q6H PRN Administration Anxiety Melatonin 5 mg 12/26/19 21:00 12/26/19 20:19 Melatonin PO 5 mg HS [facility] Administration Radiology Results: ITS Impressions Modified Barium Swallow 12/22/19 11
[2019-12-27 14:00] VITALS: BP 119/62; PULSE 69; RESP 18; TEMP 36.6; O2SAT 96
[2019-12-27] MEDS: ATORVASTATIN 20 MG TABLET PO (20:40)
[2019-12-27] MEDS: LORAZEPAM 0.5 MG TABLET PO (20:40)
[2019-12-27] MEDS: MELATONIN 5 MG TABLET PO (20:40)
[2019-12-27 22:00] VITALS: BP 128/68; PULSE 63; RESP 18; TEMP 36.1; O2SAT 98
[2019-12-28 05:32] LABS: Basophils Absolute Auto 0.1 K/mm3 (0.0-0.1); Basophils Percent Auto 0.7 % (0.2-1.2); Eosinophils Absolute Auto 0.2 K/mm3 (0-0.3); Eosinophils Percent Auto 2.2 % (0-4.4); Hematocrit 40.9 % (42.0-52.0); Hemoglobin 13.9 g/dL (14.0-18.0); Immature Granulocyte Absolute 0.02 K/mm3 (0.00-0.031); Immature Granulocyte Percent A 0.2 % (0-0.5); Lymphocytes Absolute Auto 1.94 K/mm3 (0.9-3.2); Lymphocytes Percent Auto 23.4 % (18.3-44.2); Mean Corpuscular Hemoglobin 30.8 pg (26-34); Mean Corpuscular Volume 90.5 fl (80-100); Mean Platelet Volume 10.4 fl (7.4-10.4); Monocytes Absolute Auto 0.5 K/mm3 (0.1-0.6); Monocytes Percent Auto 6.1 % (2.6-8.5); Neutrophils Absolute Auto 5.6 K/mm3 (1.3-6.7); Neutrophils Percent Auto 67.4 % (45.5-73.1); Platelet Count Result 316 k/mm3 (150-375); Red Blood Count 4.52 M/mm3 (4.6-6.20); Red Cell Distribution Width 12.6 % (11.5-14.5); White Blood Count 8.3 K/mm3 (4.5-10.0)
[2019-12-28 05:47] LABS: Blood Urea Nitrogen 13 mg/dL (9-20); Calcium 9.1 mg/dL (8.4-10.2); Carbon Dioxide 22 mmol/L (22-30); Chloride 106 mmol/L (98-107); Estimated CRCL calculation 84 ml/min; Estimated Glomerular Filt Rate > 60; Glucose 111 mg/dL (75-110); Potassium 3.8 mmol/L (3.4-5.0); Sodium 140 mmol/L (137-145)
[2019-12-28 06:00] VITALS: BP 134/61; PULSE 61; RESP 22; TEMP 36.2; O2SAT 98
[2019-12-28] MEDS: AMLODIPINE BESYLATE 5 MG TABLET 10 MG PO (09:32)
[2019-12-28] MEDS: hydrALAZINE HCL 50 MG TABLET PO ×3 (09:32→18:21)
[2019-12-28] MEDS: FLUTICASONE PROPIONATE 0.05% NA SPR 16 GM BTL (*BKC) 2 SPRAY NASAL ×2 (09:32→18:21)
[2019-12-28] MEDS: FAMOTIDINE 20 MG TABLET PO ×2 (09:32→20:19)
[2019-12-28] MEDS: ASPIRIN 81 MG CHEWABLE TABLET PO (09:32)
[2019-12-28] MEDS: OMEGA 3 POLYUNSAT FATTY ACIDS 1 GM CAP PO (09:33)
[2019-12-28] MEDS: lisinopriL 20 MG TABLET 40 MG PO (09:33)
[2019-12-28 14:00] VITALS: BP 138/68; PULSE 71; RESP 18; TEMP 36.4; O2SAT 97
[2019-12-28] MEDS: MELATONIN 5 MG TABLET PO (20:19)
[2019-12-28] MEDS: LORAZEPAM 0.5 MG TABLET PO (20:19)
[2019-12-28] MEDS: ATORVASTATIN 20 MG TABLET PO (20:19)
[2019-12-28 22:00] VITALS: BP 113/51; PULSE 67; RESP 18; TEMP 36.2; O2SAT 98
[2019-12-29 06:00] VITALS: BP 142/74; PULSE 71; RESP 18; TEMP 36.4; O2SAT 98
[2019-12-29] MEDS: FAMOTIDINE 20 MG TABLET PO (08:47)
[2019-12-29] MEDS: AMLODIPINE BESYLATE 5 MG TABLET 10 MG PO (08:47)
[2019-12-29] MEDS: FLUTICASONE PROPIONATE 0.05% NA SPR 16 GM BTL (*BKC) 2 SPRAY NASAL (08:47)
[2019-12-29] MEDS: ASPIRIN 81 MG CHEWABLE TABLET PO (08:47)
[2019-12-29] MEDS: OMEGA 3 POLYUNSAT FATTY ACIDS 1 GM CAP PO (08:48)
[2019-12-29] MEDS: hydrALAZINE HCL 50 MG TABLET PO (08:48)
[2019-12-29] MEDS: lisinopriL 20 MG TABLET 40 MG PO (08:48)
--- NOTE | 2020-01-05 06:10 | DS_ITS ---
DATE OF DISCHARGE: 12/29/2019 DISCHARGE PRIMARY REHAB DIAGNOSIS: Discharge primary rehab impairment category is 0-1, i.e., stroke with etiological diagnosis of acute infarction of the right posterior cerebral artery and SCA territories. DISCHARGE ACTIVE COMORBID CONDITIONS: 1. Hypertension. 2. Prostate cancer. REASON FOR ADMISSION: 64 years old ambidextrous male, presented to the hospital with the complaint of headache, dizziness, and slurred speech on 12/07/2019. The last well-known being on 1900 on December 06, 2019. CT scan of the head was negative. He did not receive tPA, was transferred to [facility] at 9:25 a.m. on 12/08/2019, with NIHSS of 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 However, evaluation was limited due to the venous contamination. He was not a candidate for mechanical thrombectomy on 12/07/2019. His MRI revealed acute infarction in the right posterior circulation and SCA territories. He was started on aspirin and Lipitor. TTE on 12/10/2019 demonstrated ejection fraction of 67% with no valvular abnormalities. On 12/10/2019, he became agitated with change in mental status, desaturated to 88%. CT of the head at that time revealed increasing edema in the posterior fossa with mild hydrocephalus. He was intubated and underwent extraventricular drain placement. He was started on mannitol. He developed acute kidney injury later on and mannitol was stopped and he was given IV bolus and kept sedated to control intracranial pressure, was extubated on 12/13/2019, and was noted to have prominent dysphagia and dysphonia. Repeat CT scan demonstrated improving stable edema in the posterior fossa with no hydrocephalus. He was weaned off the drip out of ICU. He was weaned off drips and sedation. Extra cranial ventricular drain was discontinued. He passed the swallowing study and transferred to out of ICU, placed on cardiac dysphagia type 2 diet. Cardiologists were consulted, who considered that the stroke was embolic in origin. Workup was negative for systemic thrombus and emboli, so received loop recorder on 12/18/2019 for diagnosis of possible occult defibrillation was placed in. He was hemodynamically stable, resumed his antihypertensive medication, treated with Septra DS for suspected UTI, but physical exam continued to have left-sided weakness with decreased gross motor control, balance impairment, and decreased safety awareness. Level of function at the time of admission fair. He required setup for eating, poor oral hygiene, supervision for toileting, bathing, upper body dressing, lower body dressing, footwear, setup for rolling in bed, sit to lying, lying to sitting, supervision for sit to stand, chair transfer, toilet transfer, car transfer, partial assistance for walking 10 feet, 50 feet with 2 turns, 150 feet, walking 10 feet on uneven surfaces, curb or step, 4 steps, 12 steps and required supervision for picking up objects. ANTICIPATED REHABILITATION GOALS: At the time of admission were to make him independent in all the modalities except requiring setup for walking 150 feet, 10 feet on uneven surfaces, curb or step, 4 steps, 12 steps, and picking up the objects. LEVEL OF FUNCTION: At the time of discharge, the patient became independent in eating, required setup for oral hygiene, independent and toileting, setup for bathing, upper body dressing, lower body dressing, and footwear. He became independent rolling in bed, sit to lying, lying to sitting, sit to stand, chair transfer. He required only supervision for toilet transfer, became independent car transfer, and required setup for 10 feet walking, 50 feet walking with 2 turns, 150 feet walking, 10 feet walking on uneven surfaces. He required the setup for 4 steps, 1
== END 2019-12-29 09:10 | disposition home or self-care (01) | DRG 57 ==
PROVIDERS: Admitting Provider Psychiatry & Neurology Neurology; Visit Provider Psychiatry & Neurology Neurology
DX: I69.354 Hemiplegia and hemiparesis following cerebral infarction affecting left non-dominant side (principal); I69.351 Hemiplegia and hemiparesis following cerebral infarction affecting right dominant side; I69.322 Dysarthria following cerebral infarction; I69.398 Other sequelae of cerebral infarction; I69.391 Dysphagia following cerebral infarction; I10 Essential (primary) hypertension; H53.8 Other visual disturbances; I65.29 Occlusion and stenosis of unspecified carotid artery; I48.91 Unspecified atrial fibrillation; Z85.46 Personal history of malignant neoplasm of prostate; Z95.810 Presence of automatic (implantable) cardiac defibrillator
CPT/HCPCS: 36415; 80048; 85025; 87081; 92508; 92523; 92610; 92611; 97110; 97112; 97116; 97165; 97530; 97535; A9270; J1644